=== PATIENT | female | born 1975 | race Caucasian/White ===

== ENCOUNTER 2020-01-22 08:21 | Outpatient (CLI) | payer OTHER | END 2020-01-22 08:31 | disposition home or self-care (01) | LOC: NUCLEAR 08:21 | PROVIDERS: ATTEND Internal Medicine Rheumatology | DX: M05.29 Rheumatoid vasculitis with rheumatoid arthritis of multiple sites (principal) | CPT/HCPCS: 78315; A9503 ==

== ENCOUNTER 2020-12-23 08:52 | Outpatient (CLI) | payer OTHER | END 2020-12-23 09:12 | disposition home or self-care (01) | LOC: MRI 08:52 | PROVIDERS: ATTEND Internal Medicine Rheumatology | DX: M87.051 Idiopathic aseptic necrosis of right femur (principal); M25.551 Pain in right hip | CPT/HCPCS: 73718 ==

== ENCOUNTER 2023-12-10 05:25 | Day surgery (SDC) | payer OTHER ==
[~2023-12-10 05:25] MED LIST: ELAVIL 10 MG
[2023-12-10] MEDS ORDERED: POVIDONE-IODINE 118 ML BOTT TOP ONE (09:30)
[2023-12-10] MEDS ORDERED: ONDANSETRON HCL 2 MG/ML VIAL IV ONE (09:45)
[2023-12-10] MEDS ORDERED: MORPHINE SULFATE 4 MG/ML VIAL IV ONE (13:05)
== END 2023-12-10 16:40 | disposition home or self-care (01) ==
LOC: CIR.AMB 05:25
PROVIDERS: ATTEND Obstetrics & Gynecology
DX: N85.00 Endometrial hyperplasia, unspecified (principal); N95.0 Postmenopausal bleeding; Z88.6 Allergy status to analgesic agent; Z91.013 Allergy to seafood; F41.9 Anxiety disorder, unspecified; M19.90 Unspecified osteoarthritis, unspecified site

== ENCOUNTER 2024-11-26 06:00 | Day surgery (SDC) | payer OTHER ==
[2024-11-20 13:24] VITALS: BP 128/84
[~2024-11-26] VITALS: Ht 160 cm; Wt 65.8 kg
[2024-11-26] MEDS ORDERED: CEFAZOLIN SODIUM 1,000 MG VIAL ONE (06:50)
[2024-11-26] MEDS ORDERED: LIDOCAINE HCL 1% 20 ML VIAL IJ ONE (07:49)
== END 2024-11-26 10:40 | disposition home or self-care (01) ==
LOC: CIR.AMB 06:00
PROVIDERS: ATTEND Surgery Surgery of the Hand
DX: M67.844 Other specified disorders of tendon, left hand (principal); Z88.6 Allergy status to analgesic agent; Z91.013 Allergy to seafood